=== PATIENT | female | born 1990 | race Hispanic/Latino ===

== ENCOUNTER 2017-11-20 23:40 | Emergency (ER) | payer OTHER ==
[2017-11-21 01:33] VITALS: BP 115/89
[2017-11-21 02:16] LABS: Basophils % (Auto) 0.5 % (0.0-1.8); Eosinophils # (Auto) 0.1 K/mm3 (0.0-0.4); Eosinophils % (Auto) 1.1 % (0.0-4.3); Hematocrit 37.9 % (30.3-42.9); Hemoglobin 12.4 gm/dl (10.1-14.3); Lymphocytes # (Auto) 3.8 K/mm3 (1.2-5.4); Lymphocytes % (Auto) 39.2 % (13.4-35.0); Mean Corpuscular HGB Conc 33 % (30-34); Mean Corpuscular Hemoglobin 26 pg (28-32); Mean Corpuscular Volume 80 fl (79-97); Monocytes # (Auto) 0.6 K/mm3 (0.0-0.8); Monocytes % (Auto) 5.9 % (0.0-7.3); Platelet Count 360 K/mm3 (140-440); Red Blood Count 4.76 M/mm3 (3.65-5.03); Red Cell Distribution Width 15.1 % (13.2-15.2)
[2017-11-21 03:15] LABS: Calcium 9.3 mg/dL (8.4-10.2); Hemolysis Index 4
[2017-11-21 04:22] LABS: BUN/Creatinine Ratio 15; Blood Urea Nitrogen 9 mg/dL (7-17)
[2017-11-21] MEDS ORDERED: PEPCID PO ONE (06:15)
--- NOTE | 2017-11-21 06:51 | Emergency Department Report ---
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 Patient reports that she has worked on and air plane with no air conditioner today. Patient also reports that she has been commuting from [place] to [place]. Patient also reports that her stomach feels like it is burning. She does admit that she was on the plane with a sick client that was vomiting. Patient reports that she was nauseated but not now. She reports that she has been awake over 24 hours. Patient reports that she is voiding. -: hour(s) (24) Severity scale (0 -10): 7 Consistency: intermittent Associated Symptoms: headaches, nausea/vomiting. denies: confusion, chest pain , cough, fever/chills, rash, shortness of breath, syncope Treatments Prior to Arrival: none - Related Data Allergies Allergy/AdvReac Type Severity Reaction Status Date / Time cephalexin [From Keflex] Allergy Dizziness Verified 11/21/17 01:33 Sulfa (Sulfonamide Allergy Swelling Verified 11/21/17 01:33 Antibiotics) lorbid Allergy Unknown Uncoded 11/21/17 01:33 ED Review of Systems ROS: Stated complaint: HEADACHE, N/V Other details as noted in HPI Constitutional: denies: chills, fever Endocrine: no symptoms reported Gastrointestinal: denies: abdominal pain, nausea, diarrhea Genitourinary: denies: urgency, dysuria, discharge Musculoskeletal: denies: back pain, joint swelling, arthralgia Skin: denies: rash, lesions Neurological: headache Psychiatric: anxiety, other (exhausted) ED Past Medical Hx - Past Medical History Previous Medical History?: No - Surgical History Past Surgical History?: Yes Additional Surgical History: T&A, tubes in ear, cystoscopy 2011 - Social History Smoking Status: Never Smoker Substance Use Type: None ED Physical Exam - General Limitations: No Limitations General appearance: alert, in no apparent distress - Head Head exam: Present: atraumatic, normocephalic - ENT ENT exam: Present: mucous membranes moist - Respiratory Respiratory exam: Present: normal lung sounds bilaterally. Absent: respiratory distress - Cardiovascular Cardiovascular Exam: Present: regular rate, normal rhythm. Absent: systolic murmur, diastolic murmur, rubs, gallop - GI/Abdominal GI/Abdominal exam: Present: soft, normal bowel sounds. Absent: distended, tenderness - Extremities Exam Extremities exam: Present: normal inspection. Absent: tenderness - Neurological Exam Neurological exam: Present: alert, oriented X3 - Psychiatric Psychiatric exam: Present: normal affect, normal mood - Skin Skin exam: Present: warm, dry, intact, normal color. Absent: rash ED Course Vital Signs 11/21/17 01:15 Temperature 98.2 F Pulse Rate 78 Respiratory 14 Rate Blood Pressure 115/89 O2 Sat by Pulse 99 Oximetry ED Medical Decision Making - Lab Data Result diagrams: 11/21/17 01:52 11/21/17 01:52 - Medical Decision Making Patient has been evaluated by this provider fast track. Patient's given Pepcid for acid reflux. Patient reports her headache has improved some. Patient reports that she just feels exhausted and run down. Discussed the patient is most likely due to her high demand schedule as well as being in the hot planes. Critical care attestation.: If time is entered above; I have spent that time in minutes in the direct care of this critically ill patient, excluding procedure time. ED Disposition Clinical Impression: Headache Qualifiers: Headache type: unspecified Headache chronicity pattern: acute headache Intractability: intractable Qualified Code(s): R51 - Headache Heat exhaustion Qualifiers: Encounter type: initial encounter Qualified Code(s): T67.5XXA - Heat exhaustion , unspecified, initial encounter Disposition: DC-01 TO HOME OR SELFCARE Is pt being admited?: No Does the pt Need Aspirin: No Condition: Stable Instructions: Heat Exhaustion (ED) Additional Instructions: Please increase your fluid intake please try to avoid extreme heat please allow her body to rest to recover from heat exhaustion. If you start to have any dizziness leg or body cramps extreme headache inability to eat please return back to the emergency room immediately Referrals: PRIMARY CARE,MD [Primary Care Provider] - 3-5 Days your,Provider [Other] - 3-5 Days Forms: Work/School Release Form(ED)
== END 2017-11-21 06:55 | disposition home or self-care (01) ==
LOC: ED 23:40
DX: T67.5XXA Heat exhaustion, unspecified, initial encounter (principal); Z88.2 Allergy status to sulfonamides; Z88.8 Allergy status to other drugs, medicaments and biological substances; Z90.89 Acquired absence of other organs; Z96.22 Myringotomy tube(s) status
CPT/HCPCS: 36415; 80048; 84703; 85025; 99283